=== PATIENT | female | born 1975 | race Caucasian/White ===

== ENCOUNTER → 2017-07-25 | Outpatient (CLI) | payer BC | LOC: FIMAGING 08:30 | PROVIDERS: ATTEND Obstetrics & Gynecology | DX: Z12.31 Encounter for screening mammogram for malignant neoplasm of breast (principal) | CPT/HCPCS: G0202 ==

== ENCOUNTER 2017-09-27 05:28 | Day surgery (SDC) | payer BC ==
--- NOTE | 2017-09-26 23:44 | GHP ---
[f rep st] PREOP HISTORY AND PHYSICAL DATE OF ADMISSION: 09/27/2017 IDENTIFYING DATA: Patient is slated for surgery on the Gynecology Service on . HISTORY UPON PRESENTATION: The patient is a 42-year-old, G1, P1 who was found during recent IUD placement to have an enlarged left ovarian complex cyst, 10 x 10 x 12 cm. Laboratory tests were drawn, which were reassuring, and the patient waited until after her next menstrual cycle on September 11. Again, the complex cyst has persisted, now 12.7 x 9 x 11.5 cm. There is a large complex nature to it with echogenic irregular vaughn, possibly papillary projections. There was no flow within the projections. The right ovary did appear normal. The uterus itself is small, 6 x 4 x 5 cm, with an endometrial thickness 0.6 cm. The Mirena IUD which was placed in July appears to be in good position at the fundus. The patient does report mild discomfort due to the large complex mass. Her intestinal system feels affected, and the patient notes quite a bit of bloating and gas and nausea. The patient feels she has to urinate much more frequently. The patient actually remembers back approximately 6 months ago that she was aware of increased pressure and pain with intercourse that might have been related to a growing cyst. At that time this was first noted in July, the patient had a CA-125 which was normal; an AFP tumor marker was normal, and a CEA was normal. Metabolic panel was normal, and the CBC revealed a hematocrit of 42% and platelets 236,000. The patient has been advised due to the persistent and large size to proceed with laparoscopy for removal of the left ovary. With caution as to the complex nature, we will attempt to carefully separate the left ovary and then place in an Endopouch and bring up to the laparoscopic opening and then drain externally to decompress for removal. The discussion with the patient is that we will attempt all approaches to minimize any potential spill of this cyst fluid internally. The patient has been counseled as to the risks and benefits of laparoscopy, and the consent form is signed. PAST MEDICAL HISTORY: Negative. PAST SURGICAL HISTORY: Laparoscopic left salpingectomy in January 2013 due to a torsed left tube and enlarged complex cyst and pain. The pathology was benign. PAST OBSTETRIC HISTORY: One term vaginal delivery without complications, viable female. 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 All Pap smears have been normal since then. However, in December 2016, the HPV test was positive. It was negative for type 16, 18, and 45. The patient had a Mirena IUD in place since 2010. She had it removed in 2015 thinking possibly the progesterone was contributing to her acne, and she had a ParaGard placed at that time. The patient found no improvement for her acne and having regular cycles with 4 days of heavy bleeding monthly. The patient was not happy with the ParaGard and desired switching back to the Mirena, which was performed in mid July at which time the mass was discovered by u/s. The patient initially had spotting after the Mirena placement but only for short time, and then it stopped, and then she began having spotting again on September 07 for several days. CURRENT MEDICATIONS: No prescription medicines, only over the counter vitamins and supplements. ALLERGIES: Patient has no known drug allergies. BODY AFTER ALLERGIES: SOCIAL HISTORY: The patient is , lives with her and her daughter. The patient is self-employed. Patient is a nonsmoker. No alcohol or drug use. FAMILY HISTORY: Maternal aunt with ovarian cancer. Mom from lung cancer and had a history of smoking. PHYSICAL EXAM: GENERAL: Upon admission, the patient is a well-developed, well- nourished, white female in no physical distress. VITAL SIGNS: Patient is clinically afebrile at the time of preop. Blood pressure 108/66. LUNGS: Clear to auscultation bilaterally. CARDIOVASCULAR: Regular rate and rhythm. ABDOMEN: Soft and nondistended. No tenderness, although there is fullness in the lower abdomen. ASSESSMENT: Large left complex mass with papillary projections into multicystic irregular walled mass. No free fluid. History of surgery in January 2013 with laparoscopy for torsed left fallopian tube. Consent form is signed. No need for additional laboratory as a CBC done in July. PLAN: Will proceed with laparoscopic removal of the left ovary only for complex large mass, as the left tube was surgically removed in 2012. All attempts will be made to remove the left ovary intact with a laparoscopic skin incision in an Endopouch and drained externally to decompress for removal. The plan for surgery is to proceed on September 27. Patient will remain n.p.o. after midnight. /[id number]/MODL MTDD
[2017-09-27] MEDS ORDERED: LR 1,000 ML IV ONE (05:54)
[2017-09-27] MEDS ORDERED: LIDOCAINE 1% 2 ML INJ ID PRN (05:57)
[2017-09-27] MEDS ORDERED: ceFAZolin 2 GM/SWFI 2 GM/20 ML SYR IVP ONE (06:56)
--- NOTE | 2017-09-27 07:01 | PDHPUP ---
History & Physical Update H&P update statement: This history and physical update is based on an assessment of the patient which was completed after admission or registration (within 24 hours), but prior to the surgery/procedure.
--- NOTE | 2017-09-27 07:09 | PDANEPAE ---
ANE Past Medical History - Cardiovascular History Hx Hypertension: No Hx Arrhythmias: No Hx Chest Pain: No Hx Coronary Artery / Peripheral Vascular Disease: No Hx CHF / Valvular Disease: No Hx Palpitations: No - Pulmonary History Hx COPD: No Hx Asthma/Reactive Airway Disease: No Hx Recent Upper Respiratory Infection: No Hx Oxygen in Use at Home: No Hx Sleep Apnea: No Sleep Apnea Screening Result - Last Documented: Negative - Neurologic History Hx Cerebrovascular Accident: No Hx Seizures: No Hx Dementia: No - Endocrine History Hx Diabetes: No - Renal History Hx Renal Disorders: No - Liver History Hx Hepatic Disorders: No - Neurological & Psychiatric Hx Hx Neurological and Psychiatric Disorders: No - Cancer History Hx Cancer: No - Congenital Disorder History Hx Congenital Disorders: No - GI History Hx Gastrointestinal Disorders: No - Other Health History Other Health History: none - Chronic Pain History Chronic Pain: No - Surgical History Prior Surgeries: lap removal of left fallopian tube and pelvic mass 02/12/13 with [facility]. tonsillectomy. wisdom teeth in high school ANE Review of Systems Review of Systems: - Exercise capacity METS (RN): 6 METS ANE Patient History - Allergies Allergies/Adverse Reactions: No Known Allergies Allergy (Verified 09/19/17 16:15) - Home Medications Home Medications: Herbals/Supplements -Info Only 02/12/13 [Last Taken 09/23/17] - NPO status NPO Since - Liquids (Date): 09/27/17 NPO Since - Liquids (Time): 02:00 NPO Since - Solids (Date): 09/26/17 NPO Since - Solids (Time): 19:00 - Smoking Hx Smoking Status: Never smoked - Family Anes Hx Family Hx Anesthesia Complications: none ANE Labs/Vital Signs - Vital Signs Blood Pressure: 109/71 Heart Rate: 80 Respiratory Rate: 16 O2 Sat (%): 99 Height: 167.64 cm Weight: 63.049 kg ANE Physical Exam - Airway Neck exam: FROM Mallampati Score: Class 1 Mouth exam: normal dental/mouth exam - Pulmonary Pulmonary: no respiratory distress - Cardiovascular Cardiovascular: regular rate and rhythym - ASA Status ASA Status: I ANE Anesthesia Plan Anesthesia Plan: general endotracheal anesthesia
[2017-09-27] MEDS ORDERED: fentaNYL 100 MCG/2 ML INJ ONE ×3 (07:10→09:30)
[2017-09-27] MEDS ORDERED: MIDAZOLAM 2 MG/2 ML VIAL ONE (07:11)
[2017-09-27] MEDS ORDERED: KETOROLAC 30 MG/1 ML SDV ONE (07:11)
[2017-09-27] MEDS ORDERED: PROPOFOL/EMULSION 500 MG/50 ML BOTTLE IV ONE ×2 (07:11→08:04)
[2017-09-27] MEDS ORDERED: BUPIVACAINE/EPI 0.5% 30 ML SDV ONE (07:16)
[2017-09-27] MEDS ORDERED: SILVER NITRATE APPLICATOR 1 APPL TP ONE (07:16)
[2017-09-27] MEDS ORDERED: ONDANSETRON 4 MG/2 ML VIAL ONE ×2 (08:52→11:00)
[2017-09-27] MEDS ORDERED: NEOSTIGMINE METHYLSULFATE 3 MG/3 ML SYR ONE ×2 (08:53→08:59)
[2017-09-27] MEDS ORDERED: GLYCOPYRROLATE 0.2 MG/1 ML VIAL ONE ×2 (08:53)
[2017-09-27] MEDS ORDERED: ONDANSETRON 4 MG/2 ML VIAL IVP PRN (09:16)
[2017-09-27] MEDS ORDERED: fentaNYL 100 MCG/2 ML INJ IVP PRN (09:16)
[2017-09-27] MEDS ORDERED: MEPERIDINE 25 MG/ML SYR IVP PRN (09:16)
[2017-09-27] MEDS ORDERED: ALBUTEROL 3 ML DEYVIAL IH PRN (09:16)
[2017-09-27] MEDS ORDERED: NALOXONE HCL 0.4 MG/ML INJ IVP PRN (09:16)
--- NOTE | 2017-09-27 09:17 | POSTANESTH ---
Post Anesthetic Evaluation Cardiovascular Status: Similar to Pre-Op Cond Respiratory Status: Similar to Pre-op Cond. Level of Consciousness/Mental Status: Mildly Sleepy, Arousable Pain Control: Adequate, Prn Tx Ordered Nausea/Vomiting Control: Adequate, Prn Tx Ordered Complications Possibly Related to Anesthesia: None Noted
--- NOTE | 2017-09-27 09:22 | POSTOPPROG ---
Post Op Note Date of Operation: 09/27/17 Surgeon: Kimberley Gillette Movie Shot Cameraman: jP Valdes MD Anesthesiologist: Darrick Ortega MD Anesthesia: GET(General Endotracheal) Pre-op Diagnosis: large left ovarian complex cyst Post-op Diagnosis: same Indication: [id number] cm complex with papillary projections, TRUDY noted 08/12 Procedure: LSC left oophorectomy Findings: 10x 12 cm enlarged left ovary, rt adnexa normal ut normal left ureter nl Inf/Abcess present in the surg proc area at time of surgery?: No Depth: Organ Space EBL: Minimal Complications: none Specimen(s): left enlarged ovary
[2017-09-27 10:09] VITALS: BP 96/52; RESP 14; TEMP 98.2
[2017-09-27 10:11] VITALS: PULSE 65; O2SAT 98
== END 2017-09-27 11:13 | disposition home or self-care (01) ==
LOC: FSGY 05:28
PROVIDERS: ATTEND Obstetrics & Gynecology
PROC: 0UT14ZZ Resection of Left Ovary, Percutaneous Endoscopic Approach (ICD-10-PCS; principal; 2017-09-27 07:15)
DX: D27.1 Benign neoplasm of left ovary (principal)
CPT/HCPCS: J0690; J1885; J2250; J2405; J2704; J2710; J3010